=== PATIENT | female | born 1955 | race Caucasian/White ===

== ENCOUNTER 2022-12-28 14:27 | Inpatient (IN) | payer BC ==
[~2022-12-28] VITALS: Ht 162.6 cm; Wt 68.0 kg
[~2022-12-28 14:27] MED LIST: VASOTEC5 MG PO
[2022-12-28] MEDS ORDERED: LOSARTAN POTAS100 MG PO (14:43)
[2022-12-29] MEDS ORDERED: PANTOPRAZOLE SO40 MG (08:49)
[2022-12-29] MEDS ORDERED: ALPRAZOLAM0.5 MG (08:49)
[2022-12-29] MEDS ORDERED: TRELEGY ELLIPT1 EACH (08:49)
[2022-12-29] MEDS ORDERED: TRAZODONE HCL50 MG (08:49)
[2022-12-29] MEDS ORDERED: ROSUVASTATIN CA10 MG (08:49)
[2022-12-29] MEDS ORDERED: FLUOXETINE HCL40 MG (08:49)
== END 2022-12-30 14:19 | disposition home or self-care (01) | DRG 690 ==
LOC: ER 14:27 → MEDJ 17:40 → SEC-K 17:40 → MEDJ 17:52
PROVIDERS: ADMIT Specialist; ATTEND Specialist
PROC: BW21ZZZ Computerized Tomography (CT Scan) of Abdomen and Pelvis (ICD-10-PCS; principal; 2022-12-28)
DX: N39.0 Urinary tract infection, site not specified (principal); R31.0 Gross hematuria; D72.829 Elevated white blood cell count, unspecified; I10 Essential (primary) hypertension; E78.00 Pure hypercholesterolemia, unspecified